=== PATIENT | female | born 1985 | race Caucasian/White ===

== ENCOUNTER 2018-12-25 16:54 | Day surgery (SDC) | payer BC ==
[2018-12-25 17:19] VITALS: BMI 29.5
[2018-12-25 18:10] LABS: Hemoglobin 11.2 g/dL (12.0-16.0); Mean Corpuscular HGB CONC 34.6 g/dL (32.0-36.0); Mean Corpuscular Hemoglobin 31.2 pg (27.0-31.0); Mean Corpuscular Volume 90.4 fL (78.0-98.0); Mean Platelet Volume 7.2 fL (7.4-10.4); Platelet Count 257 thou/uL (130-400); RBC Distribution Width 11.1 % (11.5-14.5); White Blood Cell (WBC) Count 10.7 thou/uL (4.8-10.8)
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
--- NOTE | 2018-12-25 21:22 | PDOC.EVN ---
Event Note - Event Note Event Note: No complaints. No bleeding or leaking noted. VSS, AF Abdomen remains NT. FHTs are stable, no UCs seen. H/H= 11.2/32.5, plts= 257K. O positive, negative screen. USG shows biometry c/w dates, transverse lie,adeq. AFV, ans no evidence of abruptio. Will DC home with precautions. Has af/u appt. with Dr. Quarles scheduled. Dr. Quarles aware.
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
== END 2018-12-25 21:15 | disposition home or self-care (01) ==
LOC: L&D/OP 16:54
PROVIDERS: ATTEND Obstetrics & Gynecology
DX: O99.89 Other specified diseases and conditions complicating pregnancy, childbirth and the puerperium (principal); R10.11 Right upper quadrant pain; Z3A.28 28 weeks gestation of pregnancy; Z79.2 Long term (current) use of antibiotics; Z79.899 Other long term (current) drug therapy; V49.40XA Driver injured in collision with unspecified motor vehicles in traffic accident, initial encounter
CPT/HCPCS: 36415; 76805; 85027; 86850; 86900; 86901; 99283